=== PATIENT | male | born 1985 | race Hispanic/Latino ===

== ENCOUNTER 2017-02-25 15:06 | Emergency (ER) | payer OTHER ==
[2017-02-25 15:14] LABS: EOSINOPHIL (%) 0.7 % (0-5); EOSINOPHIL COUNT 0.1 K/uL (0-0.3); HEMATOCRIT 46.4 % (38.0-50.0); IMMATURE GRANULOCYTE (%) 0.8 % (0.0-0.7); IMMATURE GRANULOCYTE COUNT 0.1 K/uL; INSTRUMENT ABS NEUTROPHIL CT 5.2 K/uL; LYMPHOCYTE COUNT 1.8 K/uL (1.0-2.8); MCH 26.1 PG (29.0-34.0); MCHC 31.7 G/DL (30.0-36.0); MCV 82.4 FL (86-99); MEAN PLAT.VOLUME 11.5 uM^3 (9.0-12.4); MONOCYTE (%) 7.2 % (3-12); MONOCYTE COUNT 0.6 K/uL (0-0.8); NEUTROPHIL COUNT 5.2 K/uL (1.8-6.4); PLATELET COUNT 170 K/uL (156-360); RBC DIS.WIDTH-CV 13.2 % (11.8-14.6); RBC DIS.WIDTH-SD 39.3 % (39-53); RED BLOOD COUNT 5.63 M/uL (4.00-5.50); WHITE BLOOD COUNT 7.7 K/uL (4.1-10.2)
[2017-02-25 15:36] LABS: AMYLASE 42 IU/L (1-118); CHLORIDE 107 mEq/L (99-109); SODIUM 140 mEq/L (136-147)
[2017-02-25 15:38] LABS: GLUCOSE 150 mg/dL (70-99)
[2017-02-25 15:40] LABS: ANION GAP 9 MEQ/L (2-14)
[2017-02-25 15:41] LABS: SERUM ETHYL ALCOHOL < 10 mg/dL
[2017-02-25 15:43] LABS: GFR ESTIMATE (CALCULATED) > 59 mL/min/; UREA NITROGEN (BUN) 16 mg/dL (9-23)
[2017-02-25 15:45] LABS: LIPASE 13 U/L (1.0-51.0)
[2017-02-25] MEDS ORDERED: ZOFRAN4 MG PO (17:39)
[2017-02-25] MEDS ORDERED: PERCOCET 5/31 TABLET PO (17:39)
== END 2017-02-25 18:45 | disposition home or self-care (01) ==
LOC: EDBD 15:06 → TRA 15:06
PROVIDERS: Emergency Medicine
PROC: 2W3MX1Z Immobilization of Left Lower Extremity using Splint (ICD-10-PCS; principal; 2017-02-25)
DX: S82.402A Unspecified fracture of shaft of left fibula, initial encounter for closed fracture (principal); V28.0XXA Motorcycle driver injured in noncollision transport accident in nontraffic accident, initial encounter
CPT/HCPCS: 70450; 70486; 71010; 73610; 80048; 81003; 82150; 83690; 85025; 86900; 86901; 99281; 99285; G0480